=== PATIENT | male | born 2000 | race Caucasian/White ===

== ENCOUNTER 2022-03-17 14:46 | Emergency (ER) | payer OTHER ==
[~2022-03-17] VITALS: Ht 170.2 cm; Wt 70.8 kg
[2022-03-17 14:58] VITALS: BP 120/74
--- NOTE | 2022-03-17 15:07 | NUR ---
PT AMBULATED TO ROOM 7
--- NOTE | 2022-03-17 15:38 | NUR ---
21YO MALE PT C/O LACERATION X1 HOUR. PT STATES HITTING HEAD AGAINST MACHINE AT WORK. DENIES LOSS OF SENSATION OR NUMBING. PRESENTS WITH 3IN LAC ON TOP OF HEAD, MILD ACTIVE BLEEDING. DENIES N/V/D, CHEST PAIN OR SOB. PT AAOX4, SPEAKING IN CLEAR FULL SENTENCES. HX:DENIES NKA
[2022-03-17] MEDS ORDERED: BACITRACIN OINT 500 UNITS/GM PKT TP ONE (15:45)
[2022-03-17 16:00] VITALS: BP 120/74
--- NOTE | 2022-03-17 16:00 | NUR ---
Patient discharged with v/s stable. Written and verbal after care instructions FOR LACERATION CARE AND DORIS given and explained. Patient verbalized understanding. Ambulatory with steady gait. All questions addressed prior to discharge. Advised to follow up with PMD. PT INSTRUCTED TO COME BACK FOR STAPLE REMOVAL
--- NOTE | 2022-03-17 16:01 | NUR ---
Chart checked and completed. The patient's care was reviewed and supervised by Conchis Zaldivar RN.
== END 2022-03-17 16:00 | disposition home or self-care (01) ==
LOC: MED 14:46
DX: S01.01XA Laceration without foreign body of scalp, initial encounter (principal); W22.8XXA Striking against or struck by other objects, initial encounter; Y93.89 Activity, other specified; Y92.89 Other specified places as the place of occurrence of the external cause; Y99.8 Other external cause status
CPT/HCPCS: 12001; 90471; 90715; 99283

== ENCOUNTER 2022-03-24 12:38 | Emergency (ER) | payer OTHER ==
[~2022-03-24] VITALS: Ht 170.2 cm; Wt 71.7 kg
[2022-03-24 13:04] VITALS: BP 110/73
--- NOTE | 2022-03-24 14:09 | NUR ---
Patient discharged with v/s stable. Written and verbal after care instructions given and explained. Patient verbalized understanding. Ambulatory with steady gait. All questions addressed prior to discharge. Advised to follow up with PMD.
== END 2022-03-24 14:09 | disposition home or self-care (01) ==
LOC: MED 12:38
DX: S01.01XD Laceration without foreign body of scalp, subsequent encounter (principal); Z48.02 Encounter for removal of sutures; X58.XXXD Exposure to other specified factors, subsequent encounter
CPT/HCPCS: 99281